=== PATIENT | male | born 1980 | race Caucasian/White ===

== ENCOUNTER 2020-02-11 08:16 | Day surgery (SDC) | payer BC ==
[2020-02-11] MEDS ORDERED: AMOXICILLIN500 MG PO (08:27)
[2020-02-11] MEDS ORDERED: PERCOCET 5/325M1 TAB PO (10:29)
[2020-02-11 11:07] VITALS: BP 110/58
== END 2020-02-11 11:55 | disposition home or self-care (01) | DRG 572 ==
LOC: ORM 08:16
PROVIDERS: ATTEND Surgery
PROC: 0JB90ZZ Excision of Buttock Subcutaneous Tissue and Fascia, Open Approach (ICD-10-PCS; principal; 2020-02-11)
DX: L05.91 Pilonidal cyst without abscess (principal); Z11.59 Encounter for screening for other viral diseases
CPT/HCPCS: C9290; J0131